=== PATIENT | male | born 1965 | race Caucasian/White ===

== ENCOUNTER → 2024-04-06 | Outpatient (CLI) | payer SELFPAY ==
--- NOTE | 2024-04-06 12:29 | CT_ITS ---
STUDY: CT CHEST WITH CONTRAST REASON FOR EXAM: Male, 59 years old. CP limited chest over read only RADIATION DOSAGE (If Supplied By Facility): CTDIvol = ( 39.15 ) mGy, DLP = ( 1262.26 ) mGycm TECHNIQUE: Transaxial imaging was performed following intravenous administration of IV 75mL [id number]. Individualized dose optimization techniques were used for this CT. COMPARISON: No relevant priors. FINDINGS: CHEST The lungs are normal. There is no demonstrated pleural abnormality. Normal heart and pericardium. No coronary artery calcification is seen. Normal mediastinum. Normal hilar regions. Normal unenhanced pulmonary arteries. Normal aorta arch and descending thoracic aorta. Normal osseous structures. There is diffuse fatty infiltration of the liver. CT/Limited Chest CT Cardiac Only IMPRESSION: No coronary artery calcification is seen. Electronically Signed: Aden Corrales MD at 14:38 EST ,
[2024-04-06 12:57] VITALS: BP 135/85; PULSE 50; RESP 18; O2SAT 97; BMI 26.9
[2024-04-06] MEDS: 0.9% Saline Lock 10 ML Syringe IV (13:05)
[2024-04-06 13:21] VITALS: BP 113/66; PULSE 50
[2024-04-06] MEDS: Nitroglycerin SL (ED/IMG/CATH) 0.4 MG TABLET SL (13:21)
[2024-04-06 13:23] VITALS: BP 113/66; PULSE 52; RESP 18
[2024-04-06 13:24] LABS: CREATININE FINGERSTICK 1.2 mg/dL (0.70-1.30); EGFR FINGERSTICK > 60.0000 mL/min (>60)
--- NOTE | 2024-04-09 10:07 | CCTA.WCONT ---
CCTA w/Cont Coronary Arteries Date of Study:: 04/06/24 Chest pain Coronary Calcium Scoring: High-resolution Computed Tomographic imaging of the chest was performed on [04/06/2024], with particular attention paid to the coronary arteries. Intravenous contrast agent was administered per protocol and images reconstructed and displayed. LEFT MAIN CORONARY ARTERY: This arises from the left coronary cusp and bifurcates the left anterior descending artery and left circumflex artery no significant stenosis is noted [] LEFT ANTERIOR DESCENDING CORONARY ARTERY: Left anterior descending artery arises from the left main coronary artery and has a focal area of calcification in the midsegment. No significant atherosclerotic plaquing is noted. No significant luminal obstructions are present. [] LEFT CIRCUMFLEX CORONARY ARTERY: Is a nondominant vessel with mild atherosclerotic plaquing noted no high-grade stenosis is present. [] RIGHT CORONARY ARTERY: Dominant vessel with no significant atherosclerotic plaquing present. [] THORACIC AORTA: Normal size [] PULMONARY ARTERY: [] LEFT ATRIUM/APPENDAGE: [] MITRAL VALVE: [] AORTIC VALVE: [] LEFT VENTRICLE: [] CORONARY CALCIUM SCORE: Not performed Conclusion: CT angiogram with minimal atherosclerotic plaquing noted. []
== END | disposition home or self-care (01) ==
LOC: CT 12:27
PROVIDERS: PCP Family Medicine; Referring Provider Nurse Practitioner Family; Visit Provider Nurse Practitioner Family
DX: R07.9 Chest pain, unspecified (principal)
CPT/HCPCS: 75574; 76380; Q9967